=== PATIENT | female | born 1995 | race Caucasian/White ===

== ENCOUNTER 2018-05-08 11:38 | Emergency (ER) | payer OTHER ==
[2018-05-08 12:12] VITALS: BP 105/67
[2018-05-08 13:14] LABS: GLUCOSE, URINE (UA) NEGATIVE (NEGATIVE); KETONES,URINE (UA) NEGATIVE (NEGATIVE); LEUKOCYTE ESTERASE, URINE TRACE (NEGATIVE); NITRITE,URINE POSITIVE (NEGATIVE); OCCULT BLOOD,URINE TRACE-INTA (NEGATIVE); PROTEIN,URINE 30 mg/dL (NEGATIVE)
[2018-05-08 13:32] LABS: BILIRUBIN,URINE NEGATIVE (NEGATIVE); CLARITY,URINE HAZY (CLEAR); HCG UR QUAL NEGATIVE; ICTOTEST,URINE NEGATIVE
[2018-05-08 13:33] LABS: BACTERIA,URINE Many /HPF (None Seen); MUCUS,URINE Moderate Strands; SQUAMOUS EPITHELIAL CELL,UR MANY Squamous (<= Few); WBC CLUMPS,URINE PRESENT
--- NOTE | 2018-05-08 14:39 | ED Physician Documentation ---
History of Present Illness - Stated complaint Stated Complaint: FEM - Chief complaint Chief Complaint: UTI - Additonal information Additional information: hx from pt 23 y/o f dysuria and freq no fever no NV no flank pain Review of Systems Constitutional: denies: Fever, Chills GI: denies: Nausea, Vomiting : reports: Dysuria, Frequency Musculoskeletal: denies: Back pain Immunocompromised: denies: Immunocompromised PD PAST MEDICAL HISTORY - Past Medical History Past Medical History: No - Past Surgical History Past Surgical History: Yes - Present Medications Home Medications: Ambulatory Orders Medication Instructions Recorded Confirmed Cephalexin [Keflex] 500 mg PO Q6H #28 capsule 05/08/18 Cetirizine [ZyrTEC] 05/08/18 05/08/18 Montelukast [Singulair] 05/08/18 Phenazopyridine [Pyridium] 100 mg PO Q8H PRN #9 tablet 05/08/18 - Allergies Allergies/Adverse Reactions: Allergies Allergy/AdvReac Type Severity Reaction Status Date / Time No Known Drug Allergies Allergy Verified 05/08/18 12:13 - Social History Does the pt smoke?: No Smoking Status: Never smoker Does the pt drink ETOH?: Yes Does the pt have substance abuse?: No - Immunizations Immunizations are current?: Yes - POLST Patient has POLST: No PD ED PE NORMAL - Vitals Vital signs reviewed: Yes - Cardiac Cardiac: RRR - Respiratory Respiratory: No respiratory distress - Abdomen Abdomen: Soft, Non tender - Back Back: No CVA TTP Results - Vitals Vitals: Vital Signs - 24 hr 05/08/18 12:11 Temperature 2.8 C L Heart Rate 70 Respiratory 16 Rate Blood Pressure 105/67 O2 Saturation 98 Oxygen O2 Source Room air - Labs Labs: Laboratory Tests 05/08/18 12:20 Urine Color ORANGE Urine Clarity HAZY Urine pH 6.0 Ur Specific [place] 1.025 Urine Protein 30 H Urine Glucose (UA) NEGATIVE Urine Ketones NEGATIVE Urine Occult Blood TRACE-INTA Urine Nitrite POSITIVE H Urine Bilirubin NEGATIVE Urine Urobilinogen MEDICAL TECHNICIAN Ur Leukocyte Esterase TRACE H Urine RBC 6-10 H Urine WBC 11-25 H Urine WBC Clumps PRESENT Ur Squamous Epith Cells MANY Squamous H Urine Bacteria Many H Urine Mucus Moderate Strands Ur Microscopic Review INDICATED Urine Culture Comments NOT INDICATED Urine HCG, Qual NEGATIVE Departure - Departure Disposition: 01 Home, Self Care Clinical Impression: Urinary tract infection Qualifiers: Urinary tract infection type: acute cystitis Hematuria presence: with hematuria Qualified Code(s): N30.01 - Acute cystitis with hematuria Instructions: ED UTI Cystitis Female Follow-Up: CHUCK SOLO MD [Primary Care Provider] - Prescriptions: Cephalexin [Keflex] 500 mg PO Q6H #28 capsule Phenazopyridine [Pyridium] 100 mg PO Q8H PRN #9 tablet PRN Reason: Pain Comments: Please follow up with your PMD for a recheck urine sample after completing the antibiotics Drink plenty of fluids Return if worse
== END 2018-05-08 15:02 | disposition home or self-care (01) ==
LOC: ED 11:38
DX: N30.01 Acute cystitis with hematuria (principal)
CPT/HCPCS: 81001; 81003; 81025; 87086; 99283

== ENCOUNTER 2019-01-10 17:08 | Emergency (ER) | payer OTHER ==
--- NOTE | 2019-01-10 17:27 | ED Physician Documentation ---
History of Present Illness - Stated complaint Stated Complaint: DRANK A BOTTLE OF MO'S - Chief complaint Chief Complaint: General - History obtained from History obtained from: Patient - History of Present Illness Timing: Today (23-year-old woman presents with her because she drank a lot today. She is been having a lot of depression has vague suicidal ideation with plan to either drink a lot of alcohol or take Advil or both. Denies to homicidal ideation. No drug use.) Review of Systems Ten Systems: 10 systems reviewed and negative Constitutional: denies: Fever, Chills Cardiac: denies: Chest pain / pressure, Palpitations Respiratory: denies: Dyspnea, Cough GI: reports: Nausea, Vomiting. denies: Abdominal Pain, Constipation, Diarrhea PD PAST MEDICAL HISTORY - Past Medical History Past Medical History: Yes Endocrine/Autoimmune: Other (anemia) - Past Surgical History Past Surgical History: Yes - Present Medications Home Medications: Ambulatory Orders Medication Instructions Recorded Confirmed Desloratadine/Pseudoephedrine 1 tab DAILY 01/10/19 01/10/19 [Clarinex-D 12 Hour Tablet] Montelukast [Singulair] 10 mg DAILY 01/10/19 01/10/19 - Allergies Allergies/Adverse Reactions: Allergies Allergy/AdvReac Type Severity Reaction Status Date / Time No Known Drug Allergies Allergy Verified 01/10/19 17:25 - Social History Does the pt smoke?: No Smoking Status: Never smoker Does the pt drink ETOH?: Yes Does the pt have substance abuse?: No - Family History Family history: reports: Non contributory - Immunizations Immunizations are current?: Yes - POLST Patient has POLST: No PD ED PE NORMAL - Vitals Vital signs reviewed: Yes - General General: Alert and oriented X 3, Other (She appears intoxicated with slow slurred speech but is pleasant and cooperative) - HEENT HEENT: PERRL, EOMI, Other (With nystagmus) - Neck Neck: Supple, no meningeal sign, No bony TTP - Cardiac Cardiac: RRR, No murmur - Respiratory Respiratory: No respiratory distress, Clear bilaterally - Abdomen Abdomen: Non tender, Non distended - Back Back: No CVA TTP, No spinal TTP - Derm Derm: Normal color, Warm and dry - Extremities Extremities: No edema, No calf tenderness / cord - Neuro Neuro: Alert and oriented X 3, canteen attendant 2-12 intact, Normal speech Results - Vitals Vitals: Vital Signs - 24 hr 01/10/19 01/10/19 01/10/19 17:15 18:00 20:26 Temperature 36 C L Heart Rate 75 65 68 Respiratory 18 20 17 Rate Blood Pressure 111/74 116/63 92/63 O2 Saturation 99 98 98 Oxygen O2 Source Room air - Labs Labs: Laboratory Tests 01/10/19 01/10/19 01/10/19 17:30 17:30 17:30 WBC 5.6 RBC 4.02 L Hgb 13.0 Hct 38.7 MCV 96.3 MCH 32.3 H MCHC 33.6 RDW 12.6 Plt Count 186 MPV 10.7 Neut # (Auto) 2.8 Lymph # (Auto) 2.3 Reagan # (Auto) 0.3 Eos # (Auto) 0.1 Baso # (Auto) 0.0 Absolute Nucleated RBC 0.00 Nucleated RBC % 0.0 Sodium 140 Potassium 3.0 L Chloride 108 Carbon Dioxide 21 Anion Gap 11.0 BUN 5 L Creatinine 0.6 Estimated GFR (MDRD) 122 Glucose 105 H Calcium 8.7 Total Bilirubin 1.1 H AST 22 ALT 15 Alkaline Phosphatase 44 Total Protein 7.1 Albumin 4.5 Globulin 2.6 Albumin/Globulin Ratio 1.7 Lipase 28 TSH 0.92 Urine Color Urine Clarity Urine pH Ur Specific [place] Urine Protein Urine Glucose (UA) Urine Ketones Urine Occult Blood Urine Nitrite Urine Bilirubin Urine Urobilinogen Ur Leukocyte Esterase Urine RBC Urine WBC Ur Squamous Epith Cells Urine Bacteria Ur Microscopic Review Urine Culture Comments Urine HCG, Qual Salicylates < 6.0 Urine Opiates Screen Ur Oxycodone Screen Urine Methadone Screen Ur Propoxyphene Screen Acetaminophen < 10 L Ur Barbiturates Screen Ur Tricyclics Screen Ur Phencyclidine Scrn Ur Amphetamine Screen U Methamphetamines Scrn U Benzodiazepines Scrn Urine Cocaine Screen U Cannabinoids Screen Ethyl Alcohol 133.3 01/10/19 01/10/19 01/10/19 17:40 17:40 19:59 WBC RBC Hgb Hct MCV MCH MCHC RDW Plt Count MPV Neut # (Auto) Lymph # (Auto) Reagan # (Auto) Eos # (Auto) Baso # (Auto) Absolute Nucleated RBC Nucleated RBC % Sodium Potassium Chloride Carbon Dioxide Anion Gap BUN Creatinine Estimated GFR (MDRD) Glucose Calcium Total Bilirubin AST ALT Alkaline Phosphatase Total Protein Albumin Globulin Albumin/Globulin Ratio Lipase TSH Urine Color YELLOW Urine Clarity CLEAR Urine pH 7.0 Ur Specific [place] 1.015 Urine Protein NEGATIVE Urine Glucose (UA) NEGATIVE Urine Ketones NEGATIVE Urine Occult Blood MODERATE H Urine Nitrite NEGATIVE Urine Bilirubin NEGATIVE Urine Urobilinogen 0.2 (NORMAL) Ur Leukocyte Esterase NEGATIVE Urine RBC 0-5 Urine WBC 0-3 Ur Squamous Epith Cells FEW Squamous Urine Bacteria None Seen Ur Microscopic Review INDICATED Urine Culture Comments NOT INDICATED Urine HCG, Qual NEGATIVE Salicylates Urine Opiates Screen NEGATIVE Ur Oxycodone Screen NEGATIVE Urine Methadone Screen NEGATIVE Ur Propoxyphene Screen NEGATIVE Acetaminophen Ur Barbiturates Screen NEGATIVE Ur Tricyclics Screen NEGATIVE Ur Phencyclidine Scrn NEGATIVE Ur Amphetamine Screen NEGATIVE U Methamphetamines Scrn NEGATIVE U Benzodiazepines Scrn NEGATIVE Urine Cocaine Screen NEGATIVE U Cannabinoids Screen NEGATIVE Ethyl Alcohol 108.0 PD MEDICAL DECISION MAKING - ED course ED course: She was allowed to sober for several hours. I had a long talk with her and her . She is no longer suicidal. The will watch her overnight and plans to take her to the clinic tomorrow. She was offered ED observation for psychiatric placement or tele-psych and she declined both. The is in agreement with the plan and will watch her tonight. Departure - Departure Disposition: 01 Home, Self Care Clinical Impression: Depression, Alcohol intoxication Condition: Good Record reviewed to determine appropriate education?: Yes Instructions: ED Depression, ED Alcohol Intoxication Comments: Follow-up with your doctor tomorrow as discussed, return anytime if worse or if you develop suicidal ideation again; do not drink alcohol. Discharge Date/Time: 01/10/19 21:12
[2019-01-10 17:39] LABS: BASOPHILS % (AUTO) 0.7 %; EOSINOPHILS # (AUTO) 0.1 10^3/uL (0.0-0.7); EOSINOPHILS % (AUTO) 1.1 %; LYMPHOCYTES # (AUTO) 2.3 10^3/uL (1.5-3.5); LYMPHOCYTES % (AUTO) 41.5 %; MEAN CORPUSCULAR HEMOGLOBIN 32.3 pg (27.0-31.0); MEAN CORPUSCULAR HGB CONC 33.6 g/dL (32.0-36.0); MEAN CORPUSCULAR VOLUME 96.3 fL (81.0-99.0); MEAN PLATELET VOLUME 10.7 fL (7.9-10.8); MONOCYTES # (AUTO) 0.3 10^3/uL (0.0-1.0); MONOCYTES % (AUTO) 5.9 %; NEUTROPHILS # (AUTO) 2.8 10^3/uL (1.5-6.6); NEUTROPHILS % (AUTO) 50.6 %; PLT - PLATELET COUNT 186 10^3/uL (130-450); RED BLOOD COUNT 4.02 10^6/uL (4.20-5.40); RED CELL DISTRIBUTION WIDTH 12.6 % (12.0-15.0); WHITE BLOOD COUNT 5.6 x10^3/uL (4.8-10.8)
[2019-01-10 17:55] LABS: ACETAMINOPHEN < 10 ug/mL (10-30); ALBUMIN 4.5 g/dL (3.2-5.5); ALBUMIN/GLOBULIN RATIO 1.7 (1.0-2.2); ALKALINE PHOSPHATASE 44 IU/L (42-121); ALT ALANINE AMINOTRANSFERASE 15 IU/L (10-60); AST ASPARTATE AMINOTRANSFERASE 22 IU/L (10-42); BILIRUBIN,TOTAL 1.1 mg/dL (0.2-1.0); BUN - BLOOD UREA NITROGEN 5 mg/dL (6-20); CALCIUM 8.7 mg/dL (8.5-10.3); CARBON DIOXIDE - CO2 21 mmol/L (21-32); CHLORIDE 108 mmol/L (101-111); CREATININE 0.6 mg/dL (0.4-1.0); GFR - MDRD 122 (>89); GLUCOSE 105 mg/dL (70-100); LIPASE 28 U/L (22-51); SALICYLATE < 6.0 mg/dL; SODIUM 140 mmol/L (135-145); TOTAL PROTEIN 7.1 g/dL (6.7-8.2)
[2019-01-10 17:56] LABS: MUDS CUTOFF CONCENTRATIONS CUTOFF CONC BELOW:
[2019-01-10 18:06] LABS: BILIRUBIN,URINE NEGATIVE (NEGATIVE); GLUCOSE, URINE (UA) NEGATIVE (NEGATIVE); KETONES,URINE (UA) NEGATIVE (NEGATIVE); LEUKOCYTE ESTERASE, URINE NEGATIVE (NEGATIVE); NITRITE,URINE NEGATIVE (NEGATIVE); OCCULT BLOOD,URINE MODERATE (NEGATIVE); PROTEIN,URINE NEGATIVE (NEGATIVE); UROBILINOGEN,URINE 0.2 (NORMAL) E.U./dL (NORMAL)
[2019-01-10 18:14] LABS: AMPHETAMINE SCREEN,URINE NEGATIVE (NEGATIVE); BENZODIAZEPINES SCREEN, URINE NEGATIVE (NEGATIVE); CLARITY,URINE CLEAR (CLEAR); COCAINE SCREEN URINE NEGATIVE (NEGATIVE); HCG UR QUAL NEGATIVE; METHADONE SCREEN, URINE NEGATIVE (NEGATIVE); METHAMPHETAMINES SCREEN, URINE NEGATIVE (NEGATIVE); OPIATE SCREEN, URINE NEGATIVE (NEGATIVE); OXYCODONE SCREEN, URINE NEGATIVE (NEGATIVE); PROPOXYPHENE SCREEN, URINE NEGATIVE (NEGATIVE); TRICYCLIC ANTIDEPRESSANT,URINE NEGATIVE (NEGATIVE)
[2019-01-10 18:55] LABS: BACTERIA,URINE None Seen /HPF (None Seen); RBC,URINE 0-5 /HPF (0-5); SQUAMOUS EPITHELIAL CELL,UR FEW Squamous (<= Few)
[2019-01-10 20:27] VITALS: BP 92/63
== END 2019-01-10 21:12 | disposition home or self-care (01) ==
LOC: ED 17:08
DX: F10.129 Alcohol abuse with intoxication, unspecified (principal); F32.9 Major depressive disorder, single episode, unspecified
CPT/HCPCS: 36415; 80053; 80306; 80307; 80320; 80329; 81001; 81003; 81025; 83690; 84443; 85025; 87086; 99283

== ENCOUNTER 2020-03-30 10:40 | Emergency (ER) | payer OTHER ==
[2020-03-30 11:09] VITALS: BP 100/58
[2020-03-30 11:16] LABS: HCG UR QUAL NEGATIVE
[2020-03-30 11:18] LABS: CLARITY,URINE SL. CLOUDY (CLEAR); LEUKOCYTE ESTERASE, URINE SMALL (NEGATIVE); NITRITE,URINE NEGATIVE (NEGATIVE); OCCULT BLOOD,URINE LARGE (NEGATIVE); PROTEIN,URINE 100 mg/dL (NEGATIVE); UROBILINOGEN,URINE 1 (NORMAL) E.U./dL (NORMAL)
[2020-03-30 11:19] LABS: BILIRUBIN,URINE NEGATIVE (NEGATIVE); GLUCOSE, URINE (UA) NEGATIVE (NEGATIVE); KETONES,URINE (UA) NEGATIVE (NEGATIVE)
[2020-03-30 11:38] LABS: BACTERIA,URINE Few /HPF (None Seen); SQUAMOUS EPITHELIAL CELL,UR FEW Squamous (<= Few)
--- NOTE | 2020-03-30 16:07 | ED Physician Documentation ---
History of Present Illness - Stated complaint Stated Complaint: FEMALE - Chief complaint Chief Complaint: General - History obtained from History obtained from: Patient - Additonal information Additional information: 25-year-old girl with recurrent UTI presents with urinary symptoms for 1 day, gradual onset, constant aching suprapubic pain worse with urination, a/w hematuria. [place] found to have a E. coli infection but her symptoms resolved so she never got antibiotics. She then developed hematuria today and dysuria with increased frequency. Denies back pain, fever, nausea. Review of Systems Ten Systems: 10 systems reviewed and negative Constitutional: denies: Fever, Chills GI: reports: Abdominal Pain. denies: Nausea : reports: Dysuria PD PAST MEDICAL HISTORY - Past Medical History Past Medical History: Yes Endocrine/Autoimmune: Other Psych: ADD/ADHD - Past Surgical History Past Surgical History: No - Present Medications Home Medications: Ambulatory Orders Medication Instructions Recorded Confirmed Methenamine/Sodium Salicylate [Azo 1 each PO TID PRN 5 Days #15 tablet 03/30/20 Urinary Tract Defense Tab] Nitrofurantoin Monohyd/M-Cryst 100 mg PO BID 5 Days #10 capsule 03/30/20 [Macrobid 100 mg Capsule] - Allergies Allergies/Adverse Reactions: Allergies Allergy/AdvReac Type Severity Reaction Status Date / Time No Known Drug Allergies Allergy Verified 03/30/20 10:48 - Social History Does the pt smoke?: No Smoking Status: Never smoker Does the pt drink ETOH?: Yes ETOH Use: Wine Does the pt have substance abuse?: No - Immunizations Immunizations are current?: Yes - POLST Patient has POLST: No PD ED PE NORMAL - Vitals Vital signs reviewed: Yes - General General: Alert and oriented X 3 - HEENT HEENT: Atraumatic, PERRL, EOMI - Neck Neck: Supple, no meningeal sign - Cardiac Cardiac: RRR - Respiratory Respiratory: No respiratory distress, Clear bilaterally - Abdomen Abdomen: Normal bowel sounds, Non tender (discomfort to suprapubic palpation), Non distended - Female Female : Deferred - Rectal Rectal: Deferred - Back Back: No CVA TTP - Derm Derm: Normal color - Extremities Extremities: No deformity - Neuro Neuro: Alert and oriented X 3 Results - Vitals Vitals: Vital Signs - 24 hr 03/30/20 03/30/20 10:45 11:09 Temperature 36.2 C L Heart Rate 61 59 L Respiratory 18 16 Rate Blood Pressure 101/70 100/58 L O2 Saturation 97 97 Oxygen O2 Source Room air - Labs Labs: Laboratory Tests 03/30/20 03/30/20 10:53 10:53 Urine Color YELLOW Urine Clarity SL. CLOUDY Urine pH 6.0 Ur Specific [place] 1.025 1.025 Urine Protein 100 H Urine Glucose (UA) NEGATIVE Urine Ketones NEGATIVE Urine Occult Blood LARGE H Urine Nitrite NEGATIVE Urine Bilirubin NEGATIVE Urine Urobilinogen 1 (NORMAL) Ur Leukocyte Esterase SMALL H Urine RBC 11-25 H Urine WBC >25 H Ur Squamous Epith Cells FEW Squamous Urine Bacteria Few Ur Microscopic Review INDICATED Urine Culture Comments INDICATED Urine HCG, Qual NEGATIVE PD MEDICAL DECISION MAKING - ED course Complexity details: reviewed results, d/w patient ED course: 25-year-old girl with past medical history of recurrent UTI presents with the same today. Antibiotics sent and education about UTI prevention given. Strict return precautions given. Follow-up with primary doctor. Departure - Departure Disposition: 01 Home, Self Care Clinical Impression: UTI (urinary tract infection), Hematuria Condition: Good Instructions: ED UTI Cystitis Female Prescriptions: Methenamine/Sodium Salicylate [Azo Urinary Tract Defense Tab] 1 each PO TID PRN 5 Days #15 tablet PRN Reason: Pain Nitrofurantoin Monohyd/M-Cryst [Macrobid 100 mg Capsule] 100 mg PO BID 5 Days #10 capsule Comments: You have been seen for a urinary tract infection. Return for any fevers back pain or worsening of symptoms. Discharge Date/Time: 03/30/20 11:47
== END 2020-03-30 11:47 | disposition home or self-care (01) ==
LOC: ED 10:40
DX: N39.0 Urinary tract infection, site not specified (principal); R31.9 Hematuria, unspecified
CPT/HCPCS: 81001; 81003; 81025; 87086; 99283; 99284

== ENCOUNTER 2022-07-29 20:33 | Emergency (ER) | payer OTHER ==
[2022-07-29] MEDS ORDERED: PROPARACAINE 0.5% OPHTH DROPS 15 ML EACHEYE STA (21:44)
[2022-07-29] MEDS ORDERED: GENTAMICIN 0.3% OPHTH DROPS LEFTEYE STA (23:39)
--- NOTE | 2022-07-29 23:42 | ED Physician Documentation ---
History of Present Illness - Stated complaint Stated Complaint: LT EYE/HEAD PX - Chief complaint Chief Complaint: Heent - Additonal information Additional information: Patient 27-year-old female presenting to the emergency department with concern for contact lens stuck in her left eye. Reports that she has been unable to remove her contact lens which has been in for approximately 1 day. Has been trying since 1630 hrs. Reports that she became frustrated and slammed her head against a mirror. The mirror did not break. She denies loss of consciousness use of blood thinning medications. Denies visual disturbances or eye pain. Review of Systems Constitutional: denies: Fever Eyes: reports: Discharge. denies: Loss of vision, Decreased vision, Photophobia, Irritation, Reviewed and negative Ears: denies: Loss of hearing Nose: denies: Rhinorrhea / runny nose Throat: denies: Dental pain / toothache Cardiac: denies: Chest pain / pressure Respiratory: denies: Dyspnea GI: denies: Abdominal Pain : denies: Dysuria Skin: denies: Rash Musculoskeletal: denies: Neck pain Neurologic: denies: Generalized weakness Psychiatric: denies: Depressed PD PAST MEDICAL HISTORY - Past Medical History Endocrine/Autoimmune: Other Psych: ADD/ADHD - Past Surgical History Past Surgical History: No - Present Medications Home Medications: Ambulatory Orders Medication Instructions Recorded Confirmed Methenamine/Sodium Salicylate [Azo 1 each PO TID PRN 5 Days #15 tablet 03/30/20 Urinary Tract Defense Tab] Nitrofurantoin Monohyd/M-Cryst 100 mg PO BID 5 Days #10 capsule 03/30/20 [Macrobid 100 mg Capsule] Gentamicin 0.3% Ophth Drops 1 bottle OPTH BID #5 ml 07/29/22 [Garamycin] - Allergies Allergies/Adverse Reactions: Allergies Allergy/AdvReac Type Severity Reaction Status Date / Time No Known Drug Allergies Allergy Verified 07/29/22 21:15 - Social History Does the pt smoke?: No Smoking Status: Never smoker Does the pt drink ETOH?: Yes Does the pt have substance abuse?: No - Immunizations Immunizations are current?: Yes - POLST Patient has POLST: No PD ED PE NORMAL - Vitals Vital signs reviewed: Yes (Within normal limits) - General General: Other (Patient tearful) - HEENT HEENT: Other (Prominent conjunctival injections to the left eye. Normal extraocular motion. Pupils equal round and reactive. No identifiable contact lens in the left eye.) - Neck Neck: Supple, no meningeal sign - Cardiac Cardiac: RRR - Respiratory Respiratory: No respiratory distress - Abdomen Abdomen: Normal bowel sounds - Female Female : Deferred - Rectal Rectal: Deferred - Back Back: No CVA TTP - Derm Derm: Normal color - Extremities Extremities: No deformity Results - Vitals Vitals: Vital Signs - 24 hr 07/29/22 07/30/22 21:11 00:00 Temperature 36.6 C 36.9 C Heart Rate 69 60 Respiratory 18 16 Rate Blood Pressure 120/79 110/66 O2 Saturation 100 100 Oxygen O2 Source Room air PD Medical Decision Making - ED course Complexity details: re-evaluated patient ED course: Patient 27-year-old female presenting to the emergency department with report of contact lens stuck in her left eye. She also reported that she had struck her head against a mirror at home and frustration with her inability to remove her contact lens. Physical exam demonstrated in emotionally distraught and acutely distressed female who is otherwise well-appearing. She was hemodynamically stable on arrival to the emergency department. Examination of her left eye demonstrated conjunctival injections however I was not able to clearly identify the presence of a contact lens. She was given proparacaine drops and my initial plan was for fluorescein examination to see if this would delineate the edge of the contact lens further. Prior to my ability to initiate this plan of action she reported that she wished to leave the emergency department. She expressed frustration with the delays in her care. I did apologize for her delays in care but explained that due to a particularly high volume of high acuity patientsMyself and the ER staff were trying to help everyone as quickly as possible. Nevertheless she did report that she wanted to leave. I encouraged her to follow-up with her accounting lecturer first thing in the morning. I also provided her with a prescription for tobramycin noted to decrease risk for infection given her persistent contact lens. Clear return precautions were given prior to discharge. Departure - Departure Disposition: 01 Home, Self Care Clinical Impression: Contact lens stuck Prescriptions: Gentamicin 0.3% Ophth Drops [Garamycin] 1 bottle OPTH BID #5 ml Comments: Thank you for allowing us to care for you today [facility]. I am very sorry we were not able to do more to help you with your stuck contact lens. I would like you to begin a course of ophthalmologic antibiotic drops to help prevent infection. I will be very important for you to follow-up with ophthalmology as soon as possible. Ideally this would be with your established accounting lecturer however if that is not possible you can also follow-up with either [facility], [address] [place] [address] Available at [phone], [place], [place] [id number] Discharge Date/Time: 07/30/22 00:03
[2022-07-30 00:01] VITALS: BP 110/66
== END 2022-07-30 00:03 | disposition home or self-care (01) ==
LOC: ED 20:33
DX: T15.92XA Foreign body on external eye, part unspecified, left eye, initial encounter (principal); X58.XXXA Exposure to other specified factors, initial encounter
CPT/HCPCS: 99282; 99283; A9270; J3490

== ENCOUNTER 2022-09-17 00:30 | Emergency (ER) | payer OTHER ==
[2022-09-17 00:50] VITALS: BP 121/75
--- NOTE | 2022-09-17 01:09 | ED Physician Documentation ---
PD HPI NVD - Stated complaint Stated Complaint: vomiting - Chief complaint Chief Complaint: Abd Pain - History obtained from History obtained from: Patient - Additonal information Additional information: HPI from patient. Patient c/o abdominal pain, across lower abdomen, radiating to bilateral mid/lower back, associated with nausea and vomiting. Onset approximately 7:40 PM tonight without inciting factors/event. pain is constant but waxes and wanes in intensity. Pain is exacerbated with movement, palpation. There is a minor pleuritic component as well. Denies fever, denies h/o similar symptoms. Review of Systems GI: reports: Abdominal Pain, Nausea, Vomiting, Diarrhea : denies: Dysuria, Frequency PD PAST MEDICAL HISTORY - Past Medical History Past Medical History: Yes Endocrine/Autoimmune: Other Psych: ADD/ADHD - Past Surgical History Past Surgical History: No - Present Medications Home Medications: Ambulatory Orders Medication Instructions Recorded Confirmed Methenamine/Sodium Salicylate [Azo 1 each PO TID PRN 5 Days #15 tablet 03/30/20 Urinary Tract Defense Tab] Nitrofurantoin Monohyd/M-Cryst 100 mg PO BID 5 Days #10 capsule 03/30/20 [Macrobid 100 mg Capsule] Gentamicin 0.3% Ophth Drops 1 bottle OPTH BID #5 ml 07/29/22 [Garamycin] - Allergies Allergies/Adverse Reactions: Allergies Allergy/AdvReac Type Severity Reaction Status Date / Time No Known Drug Allergies Allergy Verified 07/29/22 21:15 - Social History Does the pt smoke?: No Smoking Status: Never smoker Does the pt drink ETOH?: Yes Does the pt have substance abuse?: No - Immunizations Immunizations are current?: Yes - POLST Patient has POLST: No PD ED PE NORMAL - Vitals Vital signs reviewed: Yes - General General: Alert and oriented X 3, Well developed/nourished, Other (appears uncomfortable) - Cardiac Cardiac: RRR, No murmur - Respiratory Respiratory: No respiratory distress, Clear bilaterally - Abdomen Abdomen: Soft, Non distended, Other (TTP across lower abdomen without rebound or guarding) PD ED PE EXPANDED - Back Back: CVA TTP right, CVA TTP left, Other (CVA TTP more pronounced on left) Results - Vitals Vitals: Oxygen O2 Source Room air - Labs Labs: Laboratory Tests 09/17/22 02:17 Urine Color YELLOW Urine Clarity CLEAR Urine pH 6.0 Ur Specific [place] >=1.030 H Urine Protein NEGATIVE Urine Glucose (UA) NEGATIVE Urine Ketones 40 H Urine Occult Blood NEGATIVE Urine Nitrite NEGATIVE Urine Bilirubin NEGATIVE Urine Urobilinogen 0.2 (NORMAL) Ur Leukocyte Esterase NEGATIVE Ur Microscopic Review NOT INDICATED Urine Culture Comments NOT INDICATED Urine HCG, Qual NEGATIVE PD Medical Decision Making - ED course Complexity details: considered differential, d/w patient ED course: I evaluated this patient as per H+P, above. I discussed with her my recommendations, which are establish IV, blood tests, and CT A/P. We also discussed medications for symptoms, and plan was to give IV fluids, toradol, and zofran. She expressed understanding of, and agreement with, this plan. I discussed this plan with ED RN. Before I was able to put in the orders for the above tests and medications, ED RN informed me that as she was establishing IV access, patient suddenly insisted on leaving ED. I filled out AMA form and asked ED RN to bring the form to the bedside and that I would be in to review it with the patient shortly. I was subsequently informed by ED RN that room was empty; patient apparently had already left. I did not have any indication on my encounter with this patient that she was upset/unhappy with our discussion, my evaluation, or the plan for testing and treatment. Departure - Departure Disposition: 07 Against Medical Advice Clinical Impression: Abdominal pain Qualifiers: Abdominal location: lower abdomen, unspecified Qualified Code(s): R10.30 - Lower abdominal pain, unspecified Vomiting Qualifiers: Vomiting type: unspecified Nausea presence: with nausea Qualified Code(s): R11.2 - Nausea with vomiting, unspecified Condition: Good Discharge Date/Time: 09/17/22 02:43
[2022-09-17] MEDS ORDERED: KETOROLAC 30 MG/ML VIAL IVP STA (02:02)
[2022-09-17] MEDS ORDERED: ONDANSETRON 4 MG/2 ML VIAL IVP STA (02:02)
[2022-09-17] MEDS ORDERED: SODIUM CHLORIDE 0.9% 1,000 ML IV STA (02:02)
[2022-09-17 02:35] LABS: BILIRUBIN,URINE NEGATIVE (NEGATIVE); CLARITY,URINE CLEAR (CLEAR); GLUCOSE, URINE (UA) NEGATIVE (NEGATIVE); HCG UR QUAL NEGATIVE; KETONES,URINE (UA) 40 mg/dL (NEGATIVE); LEUKOCYTE ESTERASE, URINE NEGATIVE (NEGATIVE); NITRITE,URINE NEGATIVE (NEGATIVE); OCCULT BLOOD,URINE NEGATIVE (NEGATIVE); PROTEIN,URINE NEGATIVE (NEGATIVE); UROBILINOGEN,URINE 0.2 (NORMAL) E.U./dL (NORMAL)
== END 2022-09-17 02:43 | disposition left against medical advice (07) ==
LOC: ED 00:30
DX: R10.30 Lower abdominal pain, unspecified (principal); R11.2 Nausea with vomiting, unspecified
CPT/HCPCS: 36415; 80053; 81001; 81003; 81025; 83690; 85025; 87086; 99282; 99283